=== PATIENT | female | born 1950 ===

== ENCOUNTER 2024-10-30 05:37 | Day surgery (SDC) | payer OTHER ==
[2024-10-24 13:56] VITALS: BP 152/78
[~2024-10-30] VITALS: Ht 152.4 cm; Wt 67.1 kg
[~2024-10-30 05:37] MED LIST: ATACAND HCT 161 EACH PO; ECOTRIN81 MG PO; GLIPIZIDE XL5 MG; JANUMET XR 1001 EACH PO; OMEPRAZOLE40 MG PO; TOPROL XL25 M1 PO
[2024-10-30] MEDS ORDERED: CEFAZOLIN SODIUM 1,000 MG VIAL ONE (07:54)
[2024-10-30] MEDS ORDERED: BUPIVACAINE HCL/MPF 0.5% 30ML VIAL ONE (09:00)
[2024-10-30] MEDS ORDERED: LIDOCAINE HCL 1%/EPINEPHRINE 20ML VIAL IJ ONE (09:01)
[2024-10-30] MEDS ORDERED: TRAM1TAB98 PO (09:27)
[2024-10-30] MEDS ORDERED: CEPHALEXIN500 MG PO (09:27)
[2024-10-30] MEDS ORDERED: POVIDONE-IODINE 118 ML BOTT TOP ONE (10:15)
== END 2024-10-30 12:40 | disposition home or self-care (01) ==
LOC: CIR.AMB 05:37
PROVIDERS: ATTEND Surgery
DX: R15.9 Full incontinence of feces (principal); K58.0 Irritable bowel syndrome with diarrhea
CPT/HCPCS: 64581; 95972; C1778

== ENCOUNTER 2024-11-13 05:17 | Day surgery (SDC) | payer OTHER ==
[~2024-11-13 05:17] MED LIST changes: +CEPHALEXIN500 MG PO; +TRAM1TAB98 PO
[2024-11-13] MEDS ORDERED: CEFAZOLIN SODIUM 1,000 MG VIAL ONE (07:53)
[2024-11-13] MEDS ORDERED: LIDOCAINE HCL 1%/EPINEPHRINE 20ML VIAL IJ ONE (10:01)
[2024-11-13] MEDS ORDERED: BUPIVACAINE HCL/Mpf 0.5% 10ML VIAL ONE (10:01)
[2024-11-13] MEDS ORDERED: CELECOXIB200 MG PO (11:17)
[2024-11-13] MEDS ORDERED: INTESTINEX680 M1 PO (11:18)
[2024-11-13] MEDS ORDERED: TRAM1TAB98 PO (11:18)
== END 2024-11-13 13:35 | disposition home or self-care (01) ==
LOC: CIR.AMB 05:17
PROVIDERS: ATTEND Surgery
DX: R15.9 Full incontinence of feces (principal)
CPT/HCPCS: 64590; 95972; C1767